=== PATIENT | female | born 1965 | race Caucasian/White ===

== ENCOUNTER → 2016-04-05 | Outpatient (CLI) | payer OTHER ==
[~2016-04-05] MED LIST: ALBUTEROL0.09 MG/A2 IH; AMLODIPINE BESYL5 MG PO; AUGMENTIN 875 M1 TAB PO; CEFUROXIME AXE250 MG PO; CLARITIN10 MG PO; CLINDAMYCIN150 MG PO; COMBIVENT1 ARO IH; CORDROL20 MG PO; DIFLUCAN100 MG PO; DOXYCYCLINE MO100 MG PO; FLEXERIL10 MG PO; FLUCONAZOLE100 MG PO; INVOKANA100 M1 PO; JANUVIA100 MG PO; KEFLEX500 MG PO; LIPITOR10 MG PO; LOSARTAN POTASS1 TA6 PO; MEDROL DOSEPAK4 MG PO; METFORMIN1000 MG PO; Motrin,Rufen800 MG PO; NICODERM C21 MG/24 H TD; NORCO 325 MG-51 TAB PO; OXYGEN NAS; PIOGLITAZONE HC15 MG PO; PREDNICOT10 MG PO; PREDNISOLONE SO10 MG PO; PREDNISONE10 MG PO; PROAIR HFA8.5 GM INH; PROVENTIL0.09 MG/AC IH; PULMICORT RES0.25 MG INH; ROBITUSSIN; ROBITUSSIN-AC480 ML PO; SYMBICORT1 AE1 INH; TESSALON PERLE100 M1 PO; VENTOLIN0.09 MG/AC; VIBRAMYCIN100 MG PO; XOPENEX0.63 MG INH; ZITHROMAX TRI-500 MG PO; ZITHROMAX Z PA250 MG PO
[2016-04-05 12:48] LABS: HEMOGLOBIN A1c 7.6 % (4.8-5.6)
== END | disposition home or self-care (01) ==
LOC: RESCLI 03:01 → LAB 03:01 → RESCLI 08:16
PROVIDERS: Internal Medicine
DX: E11.9 Type 2 diabetes mellitus without complications (principal)

== ENCOUNTER → 2016-07-04 | Outpatient (CLI) | payer OTHER ==
[2016-07-04 15:53] LABS: HEMOGLOBIN A1c 7.6 % (4.8-5.6)
== END | disposition home or self-care (01) ==
LOC: RESCLI 02:01 → LAB 02:01 → RESCLI 10:20
PROVIDERS: Emergency Medicine
DX: E11.65 Type 2 diabetes mellitus with hyperglycemia (principal)

== ENCOUNTER 2016-07-22 19:22 | Emergency (ER) | payer OTHER ==
[~2016-07-22] VITALS: Ht 162.5 cm; Wt 113.4 kg
--- NOTE | ~2016-07-22 | EKG ---
[place], [place] ELECTROCARDIOGRAM REPORT NAME: MACHELLE FLORES UNIT #: [id number] ROOM: DOCTOR: AGNES POTTS MD BIRTHDATE: [birth year] DOS: 07/22/2016 TIME: 20:45 p.m. Normal sinus rhythm at rate 86. Probable old anterior wall myocardial infarction. Abnormal electrocardiogram. AGNES POTTS MD CM:EKGRPT:ELECTROCARDIOGRAM REPORT [id number] AGNES POTTS MD
[2016-07-22 20:23] LABS: BILIRUBIN NEGATIVE (NEGATIVE); BLOOD NEGATIVE (NEGATIVE); CLARITY CLEAR (CLEAR); COLOR YELLOW (YELLOW); GLUCOSE 3+ (NEGATIVE); KETONE NEGATIVE (NEGATIVE); LEUKO ESTERASE NEGATIVE (NEGATIVE); NITRITE NEGATIVE (NEGATIVE); PH 5.5 (5.0-9.0); PROTEIN TRACE (NEGATIVE); SPECIFIC GRAVITY >= 1.030 (1.005-1.030); UROBILINOGEN 0.2 E.U./dl (0.2-1.0)
[2016-07-22 20:25] LABS: BASO % 0.3 % (0.0-1.0); EOS # 0.3 10*3/uL (0.0-0.4); EOS % 2.1 % (1.0-4.0); HEMATOCRIT 45.4 % (37.0-47.0); HEMOGLOBIN 15.2 g/dl (12.0-16.0); IG # 0.1 10*3/uL (0.0-0.1); LYMPH # 3.5 10*3/uL (1.3-4.4); LYMPH % 25.7 % (27.0-41.0); MEAN CELL VOLUME 93.6 fl (81.0-99.0); MEAN CORPUSCULAR HGB 31.3 pg (27.0-31.0); MEAN CORPUSCULAR HGB CONC 33.5 g/dl (33.0-37.0); MEAN PLATELET VOLUME 10.6 fl (9.6-12.3); MONO # 0.8 10*3/uL (0.1-1.0); MONO % 6.1 % (3.0-9.0); NEUT # 8.9 10*3/uL (2.3-7.9); NEUT % 65.3 % (47.0-73.0); PLATELET COUNT AUTOMATED 270 10*3/uL (130-400); RED BLOOD COUNT 4.85 10*6/uL (4.10-5.10); RED CELL DISTRI WIDTH 12.6 % (0-14.5); WHITE BLOOD COUNT 13.7 10*3/uL (4.8-10.8)
[2016-07-22 20:36] LABS: PROTHROMBIN TIME 10.3 SECONDS (9.0-12.4)
[2016-07-22 20:38] LABS: BACTERIA TRACE; EPITHELIAL CELLS 15-20; URINE REFLEX COMMENT NO (NO)
[2016-07-22 20:49] LABS: ALBUMIN 3.9 gm/dl (3.1-4.5); BILIRUBIN, TOTAL 0.4 mg/dl (0.2-1.0); BUN 16 mg/dl (7-24); C-REACTIVE PROTEIN 1.29 MG/DL (0-0.3); CARBON DIOXIDE 28 mmol/L (21-32); CHLORIDE 105 mmol/L (98-107); EST GLOM FILT AFRICAN AMERICAN > 60 ml/min; GLUCOSE 110 mg/dL (65-99); MAGNESIUM 2.1 mg/dL (1.5-2.1); POTASSIUM 3.9 mmol/L (3.5-5.1); SGOT/AST 17 IU/L (3-35); SGPT/ALT 19 U/L (12-78); SODIUM 143 mmol/L (136-145); TOTAL PROTEIN 8.3 gm/dL (6.4-8.2)
[2016-07-22 20:50] LABS: ALKALINE PHOSPHATASE 82 U/L (45-117); CKMB 1.5 ng/ml (0.5-3.6); CPK 161 U/L (26-192)
[2016-07-22 20:51] LABS: TROPONIN I < 0.015 ng/ml (<0.045)
[2016-07-22] MEDS ORDERED: ZITHROMAX250 MG PO (22:14)
[2016-07-22] MEDS ORDERED: MACROBID100 M1 PO (22:19)
== END 2016-07-22 22:54 | disposition home or self-care (01) ==
LOC: ED 19:22
PROVIDERS: Nurse Practitioner Family
DX: N39.0 Urinary tract infection, site not specified (principal); M79.603 Pain in arm, unspecified; I10 Essential (primary) hypertension; E11.9 Type 2 diabetes mellitus without complications; J45.909 Unspecified asthma, uncomplicated; J44.9 Chronic obstructive pulmonary disease, unspecified; E78.5 Hyperlipidemia, unspecified; E11.65 Type 2 diabetes mellitus with hyperglycemia; F17.200 Nicotine dependence, unspecified, uncomplicated; Z88.8 Allergy status to other drugs, medicaments and biological substances; Z79.899 Other long term (current) drug therapy

== ENCOUNTER → 2016-08-16 | Outpatient (CLI) | payer OTHER ==
[~2016-08-16] MED LIST changes: +MACROBID100 M1 PO; +ZITHROMAX250 MG PO
== END | disposition home or self-care (01) ==
LOC: RESCLI 08-11 12:16
DX: E11.65 Type 2 diabetes mellitus with hyperglycemia (principal); I10 Essential (primary) hypertension; J44.9 Chronic obstructive pulmonary disease, unspecified; F17.210 Nicotine dependence, cigarettes, uncomplicated; E78.5 Hyperlipidemia, unspecified; E66.01 Morbid (severe) obesity due to excess calories; B37.3 Candidiasis of vulva and vagina; R05 Cough; R07.89 Other chest pain

== ENCOUNTER → 2016-08-24 | Outpatient (CLI) | payer OTHER ==
[~2016-08-24] MED LIST changes: +GUAIFENESIN600 MG PO
--- NOTE | ~2016-08-24 | ST ---
[place], [place] EXERCISE STRESS TEST REPORT NAME: [facility] FLORES [facility] [id number] UNIT #: [id number] ROOM: DOCTOR: RAYMOND MEJIA MD BIRTHDATE: [birth year] DOS: 08/24/2016 REASON FOR TEST: Chest pain. PHARMACOLOGICAL STRESS TEST: The patient was given 0.4 mg of Lexiscan over 10 seconds followed by nuclear injection at 40 seconds followed by 2 minutes of recovery. 1. PERFORMANCE: Baseline heart rate was 64, blood pressure 122/72, blood pressure at 2 minutes was 122/74, heart rate 90. 2. EKG RESPONSE: Baseline EKG was normal sinus rhythm. Stress EKG, no changes. CLINICAL RESPONSE: The patient was lightheaded. INTERPRETATION: 1. Negative Lexiscan stress test. 2. Wait for Cardiolite images for full report. RAYMOND MEJIA MD CM:STRESS:EXERCISE STRESS TEST REPORT [id number] RAYMOND MEJIA MD
== END | disposition home or self-care (01) ==
LOC: LAB 02:26 → CARD 09:00
DX: R07.89 Other chest pain (principal); E11.65 Type 2 diabetes mellitus with hyperglycemia

== ENCOUNTER → 2016-08-30 | Outpatient (CLI) | payer OTHER | END | disposition home or self-care (01) | LOC: RESCLI 03:53 | DX: E11.65 Type 2 diabetes mellitus with hyperglycemia (principal); I10 Essential (primary) hypertension; F17.210 Nicotine dependence, cigarettes, uncomplicated; E66.01 Morbid (severe) obesity due to excess calories; E78.5 Hyperlipidemia, unspecified; R94.39 Abnormal result of other cardiovascular function study ==

== ENCOUNTER → 2016-12-28 | Outpatient (CLI) | payer OTHER | END | disposition home or self-care (01) | LOC: RESCLI 01:01 | DX: K04.7 Periapical abscess without sinus (principal) ==

== ENCOUNTER → 2017-12-29 | Outpatient (CLI) | payer MEDICAID ==
[~2017-12-29] MED LIST changes: +LANTUS SOL100 UNIT/1 SQ; +MUCINEX ER600 MG PO; +NICODERM T; +NOVOLOG FL100 UNIT/1 SQ; +PEN NEEDLE1 EAC1 MC; +TEST STRIPS1 EACH MC
== END | disposition home or self-care (01) ==
LOC: RESCLI 03:42
DX: I10 Essential (primary) hypertension (principal); J44.9 Chronic obstructive pulmonary disease, unspecified; J96.12 Chronic respiratory failure with hypercapnia; E78.5 Hyperlipidemia, unspecified; E11.65 Type 2 diabetes mellitus with hyperglycemia; G47.30 Sleep apnea, unspecified; E66.01 Morbid (severe) obesity due to excess calories; Z71.6 Tobacco abuse counseling; Z79.899 Other long term (current) drug therapy; Z88.8 Allergy status to other drugs, medicaments and biological substances

== ENCOUNTER → 2018-01-30 | Outpatient (CLI) | payer OTHER | END | disposition home or self-care (01) | LOC: RESCLI 04:18 | DX: J44.9 Chronic obstructive pulmonary disease, unspecified (principal); I10 Essential (primary) hypertension; E78.5 Hyperlipidemia, unspecified; E11.65 Type 2 diabetes mellitus with hyperglycemia; G47.30 Sleep apnea, unspecified; J06.9 Acute upper respiratory infection, unspecified; F17.210 Nicotine dependence, cigarettes, uncomplicated; E66.9 Obesity, unspecified; Z82.49 Family history of ischemic heart disease and other diseases of the circulatory system; Z98.891 History of uterine scar from previous surgery; Z68.41 Body mass index [BMI] 40.0-44.9, adult ==

== ENCOUNTER → 2018-03-20 | Outpatient (CLI) | payer OTHER ==
[~2018-03-20] MED LIST changes: +BASAG SOL SQ; +VICTOZA 2-0.6 MG/0.1 SQ
[2018-03-20 10:47] LABS: BASO % 0.3 % (0.0-1.0); EOS # 0.2 10*3/uL (0.0-0.4); EOS % 2.4 % (1.0-4.0); HEMATOCRIT 46.6 % (37.0-47.0); HEMOGLOBIN 15.1 g/dl (12.0-16.0); LYMPH # 2.8 10*3/uL (1.3-4.4); MEAN CELL VOLUME 97.5 fl (81.0-99.0); MEAN CORPUSCULAR HGB 31.6 pg (27.0-31.0); MEAN CORPUSCULAR HGB CONC 32.4 g/dl (33.0-37.0); MEAN PLATELET VOLUME 11.4 fl (9.6-12.3); MONO # 0.7 10*3/uL (0.1-1.0); NEUT # 5.9 10*3/uL (2.3-7.9); NEUT % 60.9 % (47.0-73.0); PLATELET COUNT AUTOMATED 261 10*3/uL (130-400); RED BLOOD COUNT 4.78 10*6/uL (4.10-5.10); RED CELL DISTRI WIDTH 12.4 % (0-14.5); WHITE BLOOD COUNT 9.6 10*3/uL (4.8-10.8)
== END ==
LOC: LAB 09:32
PROVIDERS: Student in an Organized Health Care Education/Training Program
DX: J44.9 Chronic obstructive pulmonary disease, unspecified (principal)

== ENCOUNTER → 2018-04-13 | Outpatient (CLI) | payer OTHER | END | disposition home or self-care (01) | LOC: RESCLI 00:25 | DX: E78.5 Hyperlipidemia, unspecified (principal); G47.30 Sleep apnea, unspecified; E11.65 Type 2 diabetes mellitus with hyperglycemia; J44.9 Chronic obstructive pulmonary disease, unspecified; K62.5 Hemorrhage of anus and rectum; J96.12 Chronic respiratory failure with hypercapnia; F17.200 Nicotine dependence, unspecified, uncomplicated; E66.01 Morbid (severe) obesity due to excess calories; Z86.010 Personal history of colon polyps; Z71.6 Tobacco abuse counseling; Z79.899 Other long term (current) drug therapy ==

== ENCOUNTER → 2018-05-16 | Day surgery (SDC) | payer OTHER ==
[~2018-05-16] VITALS: Ht 162.5 cm; Wt 115.7 kg
--- NOTE | ~2018-05-16 | O ---
[place], [place] OPERATIVE NOTE NAME: MACHELLE LFORES UNIT #: [id number] ROOM: DOCTOR: RAVI KAPOOR MD BIRTHDATE: [birth year] DOS: 05/16/2018 GASTROENDOSCOPIC REPORT HISTORY OF PRESENT ILLNESS: This is a 52-year-old patient, who has presented with chief complaint of history of colonic polyp, undergone investigation. PAST MEDICAL HISTORY: Associated with obesity, hypercholesterolemia, and diabetes. PAST SURGICAL HISTORY: Noncontributory. ALLERGIES: No known medication. SOCIAL HISTORY: She is a smoker, nonalcohol consumer. FAMILY HISTORY: Noncontributory. PROCEDURE: Today's procedure part of investigation is colonoscopy. PREMEDICATION: Propofol. SCOPE: Olympus forward-viewing colonoscope 10L video. REPORT: After putting the patient in left lateral position and application of lubricant to the scope, the scope was introduced; thereafter, under direct visualization, advanced through the length of colon without difficulty. Diverticulosis of sigmoid colon was observed. Sessile polypoid lesions in rectal pouch was noticed. They are similar to hyperplastic polyps; however, multiple biopsies and piecemeal polypectomy is done. The patient is extubated and tolerated the procedure well. IMPRESSION: Diverticulosis, sessile colonic polyp in the rectal pouch, status post piecemeal polypectomy. PLAN: High fiber diet, low fat diet. Followup routinely with you in office, p.r.n. visit with us in GI lab. Thank you very much indeed. [place], [place] OPERATIVE NOTE NAME: [facility]ES [id number] UNIT #: [id number] ROOM: DOCTOR: RAVI KAPOOR MD BIRTHDATE: [birth year] RAVI KAPOOR MD CM:OPRECORD:OPERATIVE NOTE 1 0 RAVI KAPOOR MD 05/16/18821 interface
[2018-05-16 06:45] VITALS: BP 123/87
[2018-05-16 07:54] VITALS: BP 86/63
[2018-05-16 08:09] VITALS: BP 103/58
[2018-05-16 08:24] VITALS: BP 115/75
== END | disposition home or self-care (01) ==
LOC: SDC 05-11 13:15
DX: Z12.11 Encounter for screening for malignant neoplasm of colon (principal); K62.1 Rectal polyp; K57.30 Diverticulosis of large intestine without perforation or abscess without bleeding; F17.210 Nicotine dependence, cigarettes, uncomplicated; I10 Essential (primary) hypertension; F32.9 Major depressive disorder, single episode, unspecified; E10.9 Type 1 diabetes mellitus without complications; E78.00 Pure hypercholesterolemia, unspecified; J43.9 Emphysema, unspecified; F41.9 Anxiety disorder, unspecified; G47.30 Sleep apnea, unspecified; E66.01 Morbid (severe) obesity due to excess calories; Z86.010 Personal history of colon polyps; Z88.8 Allergy status to other drugs, medicaments and biological substances; Z79.899 Other long term (current) drug therapy; Z98.890 Other specified postprocedural states; Z68.42 Body mass index [BMI] 45.0-49.9, adult; Z82.49 Family history of ischemic heart disease and other diseases of the circulatory system; Z83.3 Family history of diabetes mellitus

== ENCOUNTER → 2018-06-19 | Outpatient (CLI) | payer OTHER ==
[2018-06-19 14:44] LABS: ALBUMIN 3.6 gm/dl (3.1-4.5); BUN 11 mg/dl (7-24); CHLORIDE 101 mmol/L (98-107); CREATININE 0.86 mg/dL (0.55-1.02); POTASSIUM 4.1 mmol/L (3.5-5.1); SGOT/AST 14 IU/L (3-35); SGPT/ALT 20 U/L (12-78); SODIUM 136 mmol/L (136-145)
[2018-06-19 14:53] LABS: ALKALINE PHOSPHATASE 69 U/L (45-117); TOTAL PROTEIN 7.8 gm/dL (6.4-8.2)
== END | disposition home or self-care (01) ==
LOC: LAB 13:26
PROVIDERS: Student in an Organized Health Care Education/Training Program
DX: E11.65 Type 2 diabetes mellitus with hyperglycemia (principal)

== ENCOUNTER → 2018-07-27 | Outpatient (CLI) | payer OTHER | END | disposition home or self-care (01) | LOC: RESCLI 01:29 | DX: G47.30 Sleep apnea, unspecified (principal); E11.65 Type 2 diabetes mellitus with hyperglycemia; J44.9 Chronic obstructive pulmonary disease, unspecified; E55.9 Vitamin D deficiency, unspecified; E78.5 Hyperlipidemia, unspecified; F17.210 Nicotine dependence, cigarettes, uncomplicated; E66.01 Morbid (severe) obesity due to excess calories; Z71.6 Tobacco abuse counseling; F32.9 Major depressive disorder, single episode, unspecified; Z79.899 Other long term (current) drug therapy ==

== ENCOUNTER → 2018-10-30 | Outpatient (CLI) | payer OTHER ==
[2018-10-30 12:45] LABS: CHOLESTEROL 126 mg/dL (<200); HDL CHOLESTEROL 34 mg/dl (40-60); LDL CHOLESTEROL 63 mg/dL (9-159); TRIGLYCERIDES 144 mg/dl (<150); VLDL CHOLESTEROL 29 mg/dL (6-40)
== END | disposition home or self-care (01) ==
LOC: LAB 11:46
PROVIDERS: Student in an Organized Health Care Education/Training Program
DX: E11.65 Type 2 diabetes mellitus with hyperglycemia (principal); E78.5 Hyperlipidemia, unspecified

== ENCOUNTER → 2018-11-09 | Outpatient (CLI) | payer OTHER | END | disposition home or self-care (01) | LOC: RESCLI 01:13 | DX: E55.9 Vitamin D deficiency, unspecified (principal); G47.30 Sleep apnea, unspecified; J44.9 Chronic obstructive pulmonary disease, unspecified; E78.5 Hyperlipidemia, unspecified; E11.65 Type 2 diabetes mellitus with hyperglycemia; I10 Essential (primary) hypertension; F32.9 Major depressive disorder, single episode, unspecified; Z79.899 Other long term (current) drug therapy ==

== ENCOUNTER → 2019-01-01 | Outpatient (CLI) | payer OTHER | END | disposition home or self-care (01) | LOC: RESCLI 00:55 | DX: G47.30 Sleep apnea, unspecified (principal); J44.9 Chronic obstructive pulmonary disease, unspecified; R41.3 Other amnesia; I10 Essential (primary) hypertension; F17.210 Nicotine dependence, cigarettes, uncomplicated; E78.5 Hyperlipidemia, unspecified; E11.65 Type 2 diabetes mellitus with hyperglycemia; E66.01 Morbid (severe) obesity due to excess calories; J96.12 Chronic respiratory failure with hypercapnia; E55.9 Vitamin D deficiency, unspecified; J44.1 Chronic obstructive pulmonary disease with (acute) exacerbation; Z86.010 Personal history of colon polyps; Z71.6 Tobacco abuse counseling; Z82.49 Family history of ischemic heart disease and other diseases of the circulatory system; Z80.0 Family history of malignant neoplasm of digestive organs; Z79.899 Other long term (current) drug therapy ==

== ENCOUNTER → 2019-01-28 | Outpatient (CLI) | payer OTHER ==
[2019-01-29 10:09] LABS: CREATININE,URINE 40.8 mg/dL (Not Estab.); MICRO ALBUMIN/CRE RATIO 20.3 (0.0-30.0)
== END | disposition home or self-care (01) ==
LOC: LAB 10:45
PROVIDERS: Student in an Organized Health Care Education/Training Program
DX: E11.65 Type 2 diabetes mellitus with hyperglycemia (principal)

== ENCOUNTER → 2019-02-21 | Outpatient (CLI) | payer OTHER | END | disposition home or self-care (01) | LOC: RESCLI 00:55 | DX: G47.30 Sleep apnea, unspecified (principal); E78.5 Hyperlipidemia, unspecified; E11.65 Type 2 diabetes mellitus with hyperglycemia; E55.9 Vitamin D deficiency, unspecified; J44.9 Chronic obstructive pulmonary disease, unspecified; J40 Bronchitis, not specified as acute or chronic; E66.01 Morbid (severe) obesity due to excess calories; Z79.899 Other long term (current) drug therapy; Z88.8 Allergy status to other drugs, medicaments and biological substances; Z68.41 Body mass index [BMI] 40.0-44.9, adult ==

== ENCOUNTER → 2019-10-29 | Outpatient (CLI) | payer OTHER ==
[2019-10-29 17:30] LABS: BASO # 0.1 10*3/uL (0.0-0.1); BASO % 0.5 % (0.0-1.0); EOS # 0.2 10*3/uL (0.0-0.4); EOS % 1.6 % (1.0-4.0); HEMATOCRIT 42.3 % (37.0-47.0); LYMPH # 3.2 10*3/uL (1.3-4.4); LYMPH % 28.8 % (27.0-41.0); MEAN CELL VOLUME 96.6 fl (81.0-99.0); MEAN CORPUSCULAR HGB 31.5 pg (27.0-31.0); MEAN CORPUSCULAR HGB CONC 32.6 g/dl (33.0-37.0); MEAN PLATELET VOLUME 11.3 fl (9.6-12.3); MONO # 0.7 10*3/uL (0.1-1.0); NEUT % 62.7 % (47.0-73.0); PLATELET COUNT AUTOMATED 256 10*3/uL (130-400); RED BLOOD COUNT 4.38 10*6/uL (4.10-5.10); RED CELL DISTRI WIDTH 12.2 % (0-14.5); WHITE BLOOD COUNT 11.2 10*3/uL (4.8-10.8)
[2019-10-29 18:01] LABS: ALBUMIN 3.3 gm/dl (3.1-4.5); CREATININE 1.41 mg/dL (0.55-1.02); POTASSIUM 4.2 mmol/L (3.5-5.1); TOTAL PROTEIN 7.3 gm/dL (6.4-8.2)
== END ==
LOC: LAB 16:15
PROVIDERS: Student in an Organized Health Care Education/Training Program
DX: E11.65 Type 2 diabetes mellitus with hyperglycemia (principal); E55.9 Vitamin D deficiency, unspecified

== ENCOUNTER → 2019-11-28 | Outpatient (CLI) | payer OTHER ==
[2019-11-28 10:57] LABS: BUN 14 mg/dl (7-24); CHLORIDE 109 mmol/L (98-107); CREATININE 0.99 mg/dL (0.55-1.02); POTASSIUM 5.2 mmol/L (3.5-5.1); SODIUM 136 mmol/L (136-145)
== END | disposition home or self-care (01) ==
LOC: RESCLI 00:36
PROVIDERS: ATTEND Internal Medicine Nephrology
DX: J44.9 Chronic obstructive pulmonary disease, unspecified (principal); G47.30 Sleep apnea, unspecified; E11.65 Type 2 diabetes mellitus with hyperglycemia; E55.9 Vitamin D deficiency, unspecified; E78.2 Mixed hyperlipidemia; N17.9 Acute kidney failure, unspecified; M25.531 Pain in right wrist; F17.210 Nicotine dependence, cigarettes, uncomplicated; Z12.31 Encounter for screening mammogram for malignant neoplasm of breast; Z79.899 Other long term (current) drug therapy; Z98.890 Other specified postprocedural states; Z88.8 Allergy status to other drugs, medicaments and biological substances

== ENCOUNTER → 2019-12-05 | Outpatient (CLI) | payer OTHER | END | disposition home or self-care (01) | LOC: MAMMO 09:00 | PROVIDERS: ATTEND Internal Medicine Nephrology | DX: Z12.31 Encounter for screening mammogram for malignant neoplasm of breast (principal) ==

== ENCOUNTER → 2019-12-19 | Outpatient (CLI) | payer OTHER ==
[2019-12-19 14:32] LABS: BUN 15 mg/dl (7-24); CHLORIDE 107 mmol/L (98-107); CREATININE 0.97 mg/dL (0.55-1.02); SODIUM 138 mmol/L (136-145)
== END | disposition home or self-care (01) ==
LOC: LAB 13:47
PROVIDERS: Student in an Organized Health Care Education/Training Program; ATTEND Internal Medicine
DX: E11.65 Type 2 diabetes mellitus with hyperglycemia (principal); I10 Essential (primary) hypertension; E78.5 Hyperlipidemia, unspecified

== ENCOUNTER → 2020-03-11 | Outpatient (CLI) | payer OTHER | END | disposition home or self-care (01) | LOC: RESCLI 00:31 | PROVIDERS: ATTEND Internal Medicine Nephrology | DX: G47.30 Sleep apnea, unspecified (principal); J44.9 Chronic obstructive pulmonary disease, unspecified; E11.65 Type 2 diabetes mellitus with hyperglycemia; E78.2 Mixed hyperlipidemia; R21 Rash and other nonspecific skin eruption; E55.9 Vitamin D deficiency, unspecified; Z79.84 Long term (current) use of oral hypoglycemic drugs; Z79.899 Other long term (current) drug therapy; Z88.8 Allergy status to other drugs, medicaments and biological substances ==

== ENCOUNTER → 2020-04-08 | Outpatient (CLI) | payer OTHER ==
[2020-04-08 16:09] LABS: BUN 20 mg/dl (7-24); CHLORIDE 103 mmol/L (98-107); CREATININE 1.01 mg/dL (0.55-1.02); POTASSIUM 4.1 mmol/L (3.5-5.1); SODIUM 138 mmol/L (136-145)
== END | disposition home or self-care (01) ==
LOC: LAB 15:24
PROVIDERS: Student in an Organized Health Care Education/Training Program; ATTEND Internal Medicine Nephrology
DX: E11.65 Type 2 diabetes mellitus with hyperglycemia (principal); N17.9 Acute kidney failure, unspecified

== ENCOUNTER → 2020-05-20 | Outpatient (CLI) | payer OTHER | END | disposition home or self-care (01) | LOC: RESCLI 02:11 | PROVIDERS: ATTEND Internal Medicine Nephrology | DX: J44.1 Chronic obstructive pulmonary disease with (acute) exacerbation (principal); E78.2 Mixed hyperlipidemia; E55.9 Vitamin D deficiency, unspecified; F17.210 Nicotine dependence, cigarettes, uncomplicated; E11.65 Type 2 diabetes mellitus with hyperglycemia; R53.83 Other fatigue; R21 Rash and other nonspecific skin eruption; G47.30 Sleep apnea, unspecified; Z79.84 Long term (current) use of oral hypoglycemic drugs; Z79.899 Other long term (current) drug therapy ==

== ENCOUNTER → 2020-09-01 | Outpatient (CLI) | payer OTHER ==
[2020-09-01 15:53] LABS: BASO % 0.4 % (0.0-1.0); EOS # 0.3 10*3/uL (0.0-0.4); EOS % 2.7 % (1.0-4.0); HEMATOCRIT 45.7 % (37.0-47.0); LYMPH # 2.9 10*3/uL (1.3-4.4); LYMPH % 29.2 % (27.0-41.0); MEAN CELL VOLUME 96.4 fl (81.0-99.0); MEAN CORPUSCULAR HGB 31.4 pg (27.0-31.0); MEAN CORPUSCULAR HGB CONC 32.6 g/dl (33.0-37.0); MEAN PLATELET VOLUME 11.1 fl (9.6-12.3); MONO # 0.7 10*3/uL (0.1-1.0); MONO % 7.3 % (3.0-9.0); NEUT % 60.1 % (47.0-73.0); PLATELET COUNT AUTOMATED 264 10*3/uL (130-400); RED BLOOD COUNT 4.74 10*6/uL (4.10-5.10); RED CELL DISTRI WIDTH 11.9 % (0-14.5)
[2020-09-01 16:23] LABS: ALBUMIN 3.3 gm/dl (3.1-4.5); CREATININE 1.19 mg/dL (0.55-1.02); POTASSIUM 4.4 mmol/L (3.5-5.1); TOTAL PROTEIN 7.4 gm/dL (6.4-8.2)
== END | disposition home or self-care (01) ==
LOC: LAB 15:34
PROVIDERS: ATTEND Student in an Organized Health Care Education/Training Program
DX: E11.65 Type 2 diabetes mellitus with hyperglycemia (principal)

== ENCOUNTER → 2020-09-02 | Outpatient (CLI) | payer OTHER | END | disposition home or self-care (01) | LOC: RESCLI 00:47 | PROVIDERS: ATTEND Internal Medicine Nephrology | DX: G47.30 Sleep apnea, unspecified (principal); E11.65 Type 2 diabetes mellitus with hyperglycemia; J44.9 Chronic obstructive pulmonary disease, unspecified; E78.2 Mixed hyperlipidemia; E55.9 Vitamin D deficiency, unspecified; I10 Essential (primary) hypertension; E78.5 Hyperlipidemia, unspecified; R21 Rash and other nonspecific skin eruption; Z79.84 Long term (current) use of oral hypoglycemic drugs; Z79.899 Other long term (current) drug therapy; Z72.0 Tobacco use; Z88.8 Allergy status to other drugs, medicaments and biological substances ==

== ENCOUNTER → 2020-10-23 | Outpatient (CLI) | payer OTHER | END | disposition home or self-care (01) | LOC: RESCLI 00:37 | PROVIDERS: ATTEND Internal Medicine | DX: J02.9 Acute pharyngitis, unspecified (principal); R05 Cough; G47.30 Sleep apnea, unspecified; E11.65 Type 2 diabetes mellitus with hyperglycemia; J44.9 Chronic obstructive pulmonary disease, unspecified; E78.2 Mixed hyperlipidemia; E55.9 Vitamin D deficiency, unspecified; R53.83 Other fatigue; F17.210 Nicotine dependence, cigarettes, uncomplicated; Z88.8 Allergy status to other drugs, medicaments and biological substances; Z98.890 Other specified postprocedural states; Z79.84 Long term (current) use of oral hypoglycemic drugs; Z79.899 Other long term (current) drug therapy ==

== ENCOUNTER → 2021-04-14 | Outpatient (CLI) | payer OTHER | END | disposition home or self-care (01) | LOC: COVID19 15:31 | PROVIDERS: ATTEND Internal Medicine | DX: U07.1 COVID-19 (principal) ==

== ENCOUNTER → 2021-06-04 | Outpatient (CLI) | payer OTHER | END | disposition home or self-care (01) | LOC: RESCLI 01:31 | PROVIDERS: ATTEND Internal Medicine | DX: G47.30 Sleep apnea, unspecified (principal); J44.9 Chronic obstructive pulmonary disease, unspecified; R21 Rash and other nonspecific skin eruption; E11.65 Type 2 diabetes mellitus with hyperglycemia; E55.9 Vitamin D deficiency, unspecified; E78.2 Mixed hyperlipidemia; R53.83 Other fatigue; I10 Essential (primary) hypertension; Z12.31 Encounter for screening mammogram for malignant neoplasm of breast; F17.210 Nicotine dependence, cigarettes, uncomplicated; Z88.8 Allergy status to other drugs, medicaments and biological substances; Z79.899 Other long term (current) drug therapy; Z79.84 Long term (current) use of oral hypoglycemic drugs ==

== ENCOUNTER → 2021-06-07 | Outpatient (CLI) | payer OTHER ==
[2021-06-07 10:20] LABS: BASO # 0.1 10*3/uL (0.0-0.1); BASO % 0.7 % (0.0-1.0); EOS # 0.3 10*3/uL (0.0-0.4); EOS % 3.4 % (1.0-4.0); HEMATOCRIT 45.3 % (37.0-47.0); LYMPH # 2.9 10*3/uL (1.3-4.4); LYMPH % 31.7 % (27.0-41.0); MEAN CELL VOLUME 95.6 fl (81.0-99.0); MEAN CORPUSCULAR HGB 31.6 pg (27.0-31.0); MEAN CORPUSCULAR HGB CONC 33.1 g/dl (33.0-37.0); MONO # 0.7 10*3/uL (0.1-1.0); MONO % 7.2 % (3.0-9.0); NEUT # 5.2 10*3/uL (2.3-7.9); NEUT % 56.8 % (47.0-73.0); PLATELET COUNT AUTOMATED 262 10*3/uL (130-400); RED BLOOD COUNT 4.74 10*6/uL (4.10-5.10); RED CELL DISTRI WIDTH 11.9 % (0-14.5); WHITE BLOOD COUNT 9.2 10*3/uL (4.8-10.8)
[2021-06-07 10:42] LABS: BUN 14 mg/dl (7-24); CHLORIDE 107 mmol/L (98-107); POTASSIUM 4.8 mmol/L (3.5-5.1); SGOT/AST 12 IU/L (3-35); SGPT/ALT 20 U/L (12-78); SODIUM 140 mmol/L (136-145)
[2021-06-07 10:53] LABS: ALKALINE PHOSPHATASE 90 U/L (45-117); CHOLESTEROL 160 mg/dL (<200); CREATININE 0.87 mg/dL (0.55-1.02); LDL CHOLESTEROL 102 mg/dL (9-159); TOTAL PROTEIN 7.4 gm/dL (6.4-8.2); TRIGLYCERIDES 93 mg/dl (<150)
[2021-06-07 11:20] LABS: VITAMIN D, 25-HYDROXY 26.5 ng/mL (30-100)
[2021-06-08 10:08] LABS: CREATININE,URINE 95.7 mg/dL (Not Estab.)
== END | disposition home or self-care (01) ==
LOC: LAB 10:00
PROVIDERS: Internal Medicine; ATTEND Internal Medicine Nephrology
DX: E11.65 Type 2 diabetes mellitus with hyperglycemia (principal); E78.2 Mixed hyperlipidemia; E55.9 Vitamin D deficiency, unspecified; R53.83 Other fatigue

== ENCOUNTER → 2021-07-12 | Outpatient (CLI) | payer OTHER | END | disposition home or self-care (01) | LOC: MAMMO 10:45 | PROVIDERS: ATTEND Internal Medicine Nephrology | DX: Z12.31 Encounter for screening mammogram for malignant neoplasm of breast (principal) ==

== ENCOUNTER → 2021-09-03 | Outpatient (CLI) | payer OTHER | END | disposition home or self-care (01) | LOC: RESCLI 00:13 | PROVIDERS: ATTEND Internal Medicine | DX: E11.65 Type 2 diabetes mellitus with hyperglycemia (principal); I10 Essential (primary) hypertension; E78.5 Hyperlipidemia, unspecified; F17.210 Nicotine dependence, cigarettes, uncomplicated; J44.9 Chronic obstructive pulmonary disease, unspecified; G47.30 Sleep apnea, unspecified; E66.01 Morbid (severe) obesity due to excess calories; E55.9 Vitamin D deficiency, unspecified; Z79.899 Other long term (current) drug therapy; Z88.8 Allergy status to other drugs, medicaments and biological substances ==

== ENCOUNTER → 2022-05-20 | Outpatient (CLI) | payer OTHER | END | disposition home or self-care (01) | LOC: RESCLI 00:48 | PROVIDERS: ATTEND Internal Medicine | DX: F41.9 Anxiety disorder, unspecified (principal); E11.65 Type 2 diabetes mellitus with hyperglycemia; E78.5 Hyperlipidemia, unspecified; E55.9 Vitamin D deficiency, unspecified; Z82.49 Family history of ischemic heart disease and other diseases of the circulatory system; Z98.890 Other specified postprocedural states; Z88.8 Allergy status to other drugs, medicaments and biological substances; Z79.84 Long term (current) use of oral hypoglycemic drugs; Z79.899 Other long term (current) drug therapy ==

== ENCOUNTER → 2022-12-15 | Outpatient (CLI) | payer MEDICAID ==
[2022-12-15 17:24] LABS: BUN 26 mg/dl (9-23); CHLORIDE 107 mmol/L (98-107); CHOLESTEROL 154 mg/dL (<200); LDL CHOLESTEROL 86 mg/dL (9-159); POTASSIUM 4.2 mmol/L (3.4-5.1); TRIGLYCERIDES 110 mg/dl (<150)
== END | disposition home or self-care (01) ==
LOC: LAB 16:48
PROVIDERS: ATTEND Internal Medicine
DX: E11.65 Type 2 diabetes mellitus with hyperglycemia (principal); E78.5 Hyperlipidemia, unspecified; E55.9 Vitamin D deficiency, unspecified

== ENCOUNTER → 2022-12-16 | Outpatient (CLI) | payer MEDICAID | END | disposition home or self-care (01) | LOC: RESCLI 00:28 | PROVIDERS: ATTEND Internal Medicine | DX: M25.512 Pain in left shoulder (principal); J44.9 Chronic obstructive pulmonary disease, unspecified; E11.65 Type 2 diabetes mellitus with hyperglycemia; E78.5 Hyperlipidemia, unspecified; F41.9 Anxiety disorder, unspecified; F17.210 Nicotine dependence, cigarettes, uncomplicated; Z88.8 Allergy status to other drugs, medicaments and biological substances; Z98.890 Other specified postprocedural states; Z82.49 Family history of ischemic heart disease and other diseases of the circulatory system; Z82.3 Family history of stroke; Z79.899 Other long term (current) drug therapy ==

== ENCOUNTER → 2023-08-03 | Outpatient (CLI) | payer MEDICAID | END | disposition home or self-care (01) | LOC: RESCLI 00:27 | PROVIDERS: ATTEND Internal Medicine | DX: L84 Corns and callosities (principal); E11.9 Type 2 diabetes mellitus without complications; R41.3 Other amnesia; F41.9 Anxiety disorder, unspecified; Z79.899 Other long term (current) drug therapy; Z88.8 Allergy status to other drugs, medicaments and biological substances; Z98.890 Other specified postprocedural states ==

== ENCOUNTER 2024-04-14 22:45 | Emergency (ER) | payer MEDICAID ==
[~2024-04-14] VITALS: Ht 165.1 cm; Wt 86.2 kg
[2024-04-14] MEDS ORDERED: Albuterol Sulf/Ipratropium 3 ML VIAL NEB ONE (23:10)
[2024-04-14 23:29] LABS: BASO % 0.4 % (0.0-1.0); EOS # 0.2 10*3/uL (0.0-0.4); EOS % 2.3 % (1.0-4.0); HEMATOCRIT 42.5 % (37.0-47.0); MEAN CORPUSCULAR HGB 30.3 pg (27.0-31.0); MEAN CORPUSCULAR HGB CONC 32.2 g/dl (33.0-37.0); MEAN PLATELET VOLUME 10.3 fl (9.6-12.3); MONO # 0.6 10*3/uL (0.1-1.0); MONO % 6.5 % (3.0-9.0); NEUT # 4.8 10*3/uL (2.3-7.9); NEUT % 52.1 % (47.0-73.0); PLATELET COUNT AUTOMATED 288 10*3/uL (130-400); RED BLOOD COUNT 4.52 10*6/uL (4.10-5.10); RED CELL DISTRI WIDTH 11.7 % (0-14.5); WHITE BLOOD COUNT 9.2 10*3/uL (4.8-10.8)
[2024-04-14 23:51] LABS: ALKALINE PHOSPHATASE 93 U/L (46-116); BUN 18 mg/dl (9-23); CHLORIDE 100 mmol/L (98-107); POTASSIUM 3.9 mmol/L (3.4-5.1); SGPT/ALT 13 U/L (5-49); TOTAL PROTEIN 7.1 gm/dL (6.0-8.0)
[2024-04-15] MEDS ORDERED: methylPREDNISolone sod succ 125 MG VIAL IM ONE (00:05)
[2024-04-15] MEDS ORDERED: PREDNISONE20 M1 PO (00:11)
[2024-04-15] MEDS ORDERED: ZITHROMAX250 MG PO (00:11)
== END 2024-04-15 00:33 | disposition home or self-care (01) ==
LOC: ED 22:45
PROVIDERS: Internal Medicine
DX: J44.1 Chronic obstructive pulmonary disease with (acute) exacerbation (principal); E11.65 Type 2 diabetes mellitus with hyperglycemia; E11.22 Type 2 diabetes mellitus with diabetic chronic kidney disease; I12.9 Hypertensive chronic kidney disease with stage 1 through stage 4 chronic kidney disease, or unspecified chronic kidney disease; N18.31 Chronic kidney disease, stage 3a; F17.200 Nicotine dependence, unspecified, uncomplicated; Z88.8 Allergy status to other drugs, medicaments and biological substances; Z98.890 Other specified postprocedural states

== ENCOUNTER → 2024-04-18 | Outpatient (CLI) | payer MEDICAID ==
[~2024-04-18] MED LIST changes: +PREDNISONE20 M1 PO
== END | disposition home or self-care (01) ==
LOC: RESCLI 00:35
PROVIDERS: ATTEND Student in an Organized Health Care Education/Training Program
DX: E11.9 Type 2 diabetes mellitus without complications (principal); J44.9 Chronic obstructive pulmonary disease, unspecified; G89.29 Other chronic pain; J40 Bronchitis, not specified as acute or chronic; Z98.890 Other specified postprocedural states; Z79.899 Other long term (current) drug therapy; Z88.8 Allergy status to other drugs, medicaments and biological substances

== ENCOUNTER → 2024-11-05 | Outpatient (CLI) | payer MEDICAID | END | disposition home or self-care (01) | LOC: RESCLI 01:08 | PROVIDERS: ATTEND Internal Medicine | DX: J44.9 Chronic obstructive pulmonary disease, unspecified (principal); E78.5 Hyperlipidemia, unspecified; E11.9 Type 2 diabetes mellitus without complications; F32.9 Major depressive disorder, single episode, unspecified; Z79.899 Other long term (current) drug therapy; Z98.890 Other specified postprocedural states; Z88.8 Allergy status to other drugs, medicaments and biological substances ==

== ENCOUNTER 2025-01-10 16:58 | Emergency (ER) | payer MEDICAID ==
[~2025-01-10] VITALS: Ht 162.5 cm; Wt 86.2 kg
[2025-01-10] MEDS ORDERED: Albuterol Sulf/Ipratropium 3 ML VIAL NEB ONE (17:35)
[2025-01-10 17:50] LABS: BASO # 0.1 10*3/uL (0.0-0.1); BASO % 0.6 % (0.0-1.0); EOS # 0.3 10*3/uL (0.0-0.4); EOS % 2.9 % (1.0-4.0); MEAN CELL VOLUME 95.4 fl (81.0-99.0); MEAN CORPUSCULAR HGB 30.8 pg (27.0-31.0); MEAN PLATELET VOLUME 10.5 fl (9.6-12.3); MONO # 0.7 10*3/uL (0.1-1.0); MONO % 6.7 % (3.0-9.0); NEUT # 6.0 10*3/uL (2.3-7.9); NEUT % 57.0 % (47.0-73.0); NUCLEATED RED BLOOD CELL 0.0 % (0.0-0.0); NUCLEATED RED BLOOD CELL 0.0 10*3/uL (0.0-0.0); PLATELET COUNT AUTOMATED 266 10*3/uL (130-400); RED CELL DISTRI WIDTH 11.6 % (0-14.5)
[2025-01-10 18:12] LABS: BUN 13 mg/dl (9-23)
[2025-01-10] MEDS ORDERED: PREDNISONE20 M1 PO (18:48)
[2025-01-10] MEDS ORDERED: AVPAK AZITHROM250 M1 PO (18:48)
[2025-01-10] MEDS ORDERED: FLUCONAZOLE 150 MG TAB PO ONE (18:50)
[2025-01-10] MEDS ORDERED: AZITHROMYCIN 250 MG TAB PO ONE (18:50)
== END 2025-01-10 18:58 | disposition home or self-care (01) ==
LOC: ED 16:58
PROVIDERS: Nurse Practitioner Family
DX: J44.1 Chronic obstructive pulmonary disease with (acute) exacerbation (principal); E78.5 Hyperlipidemia, unspecified; E66.01 Morbid (severe) obesity due to excess calories; G47.30 Sleep apnea, unspecified; N18.30 Chronic kidney disease, stage 3 unspecified; E11.9 Type 2 diabetes mellitus without complications; I10 Essential (primary) hypertension; F41.9 Anxiety disorder, unspecified; F32.A Depression, unspecified; E78.00 Pure hypercholesterolemia, unspecified; Z98.890 Other specified postprocedural states; Z68.41 Body mass index [BMI] 40.0-44.9, adult; Z88.8 Allergy status to other drugs, medicaments and biological substances

== ENCOUNTER 2025-02-05 15:23 | Emergency (ER) | payer MEDICAID ==
[~2025-02-05] VITALS: Ht 162.5 cm; Wt 87.1 kg
[~2025-02-05 15:23] MED LIST changes: +AVPAK AZITHROM250 M1 PO
[2025-02-05] MEDS ORDERED: [UNRECOGNIZED DRUG - OTHER] OP (15:36)
[2025-02-05] MEDS ORDERED: Albuterol Sulf/Ipratropium 3 ML VIAL NEB ONE (16:00)
[2025-02-05 16:14] LABS: BASO # 0.0 10*3/uL (0.0-0.1); BASO % 0.6 % (0.0-1.0); EOS # 0.3 10*3/uL (0.0-0.4); EOS % 3.9 % (1.0-4.0); MEAN CELL VOLUME 95.7 fl (81.0-99.0); MEAN CORPUSCULAR HGB 30.2 pg (27.0-31.0); MEAN PLATELET VOLUME 10.7 fl (9.6-12.3); MONO # 0.6 10*3/uL (0.1-1.0); MONO % 8.2 % (3.0-9.0); NEUT # 4.2 10*3/uL (2.3-7.9); NEUT % 57.8 % (47.0-73.0); NUCLEATED RED BLOOD CELL 0.0 % (0.0-0.0); NUCLEATED RED BLOOD CELL 0.0 10*3/uL (0.0-0.0); PLATELET COUNT AUTOMATED 215 10*3/uL (130-400); RED CELL DISTRI WIDTH 11.9 % (0-14.5)
[2025-02-05 16:43] LABS: BUN 14.0 mg/dl (9-23)
[2025-02-05] MEDS ORDERED: SODIUM CHLORIDE 0.9% 1,000 ML IV ONE (16:50)
[2025-02-05] MEDS ORDERED: INSULIN REGULAR, HUMAN 1 UNIT/0.01 ML IV ONE (16:50)
[2025-02-05 19:08] LABS: BUN 14 mg/dl (9-23)
[2025-02-05] MEDS ORDERED: PREDNISONE20 M1 PO (19:32)
[2025-02-05] MEDS ORDERED: VENT7GM INH (19:32)
== END 2025-02-05 19:39 | disposition home or self-care (01) ==
LOC: ED 15:23
PROVIDERS: Nurse Practitioner Family
DX: J44.1 Chronic obstructive pulmonary disease with (acute) exacerbation (principal); E11.9 Type 2 diabetes mellitus without complications; I10 Essential (primary) hypertension; F41.9 Anxiety disorder, unspecified; F32.A Depression, unspecified; Z98.890 Other specified postprocedural states; Z88.8 Allergy status to other drugs, medicaments and biological substances